=== PATIENT | male | born 1960 | race Caucasian/White ===

== ENCOUNTER 2017-05-31 10:14 | Emergency (ER) | payer OTHER ==
[~2017-05-31] VITALS: Ht 162.6 cm; Wt 57.1 kg
[2017-05-31 10:20] VITALS: Ht 162.6 cm; Wt 57.1 kg
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
[2017-05-31] MEDS ORDERED: DIPHTHERIA/TETANUS/PERTUSSIS 0.5 ML SYR/VIAL IM. ONE (10:45)
[2017-05-31] MEDS ORDERED: AMPICILLIN/SULBACTAM SOD INJ 3,000 MG in SODIUM CHLORIDE 0.9% 100ML 100 ML IV ONE (10:45)
[2017-05-31 10:47] LABS: HEMATOCRIT 43.8 % (42-52); MEAN CORPUSCULAR HEMOGLOBIN 29.1 pg (25-34); MEAN CORPUSCULAR HGB CONC 33.1 g/dl (32-36); MEAN PLATELET VOLUME 11.6 fL (7.4-10.4); PLATELET COUNT 191 K/uL (130-400); RED BLOOD COUNT 4.98 M/uL (4.7-6.1); WHITE BLOOD COUNT 25.02 K/uL (4.8-10.8)
--- NOTE | 2017-05-31 10:49 | DIAGNOSTIC IMAGING REPORT ---
RIGHT FOREARM 2 VIEWS ROUTINE CLINICAL HISTORY: Dog bite. Cellulitis. COMPARISON: None. DISCUSSION: No fractures or dislocations are visualized. No radiopaque foreign bodies are visualized. There is no air within the soft tissues. IMPRESSION: 1. No evidence of fracture 2. No radiopaque foreign bodies identified Electronically signed by: Good Sharma M.D. 05/31/2017 10:47 AM Dictated Date/Time: 05/31/2017 10:47 AM
[2017-05-31 11:06] LABS: BUN/CREATININE RATIO 11.3 (10-20); CREATININE 0.91 mg/dl (0.60-1.40); POTASSIUM 4.2 mmol/L (3.5-5.1)
[2017-05-31 11:09] LABS: ALB/GLOB RATIO 0.9 (0.9-2)
[2017-05-31 11:15] LABS: BASO % 0.1 %; BASO ABS # 0.02 K/uL (0-0.2); COMPLETE YES; EOS % 0.1 %; IG% 0.6 %; LYMPH % 9.8 %; LYMPH ABS # 2.45 K/uL (1.2-3.4); MONO % 7.1 %; NEUT % 82.3 %
[2017-05-31 11:18] VITALS: TEMP 36.8
[2017-05-31] MEDS ORDERED: ONDANSETRON INJ 2 MG/ML 2 ML VIAL IV STA (11:51)
[2017-05-31] MEDS ORDERED: MoRPHine SULFATE 4 MG/ML 1 ML CARP\\VIAL IV STA (11:51)
[2017-05-31] MEDS ORDERED: AMOX875T PO (12:50)
[2017-05-31] MEDS ORDERED: ONDA4TAB10 SL (12:51)
[2017-05-31] MEDS ORDERED: HYDR-5688 PO (12:51)
[2017-05-31 13:28] VITALS: BP 102/80; PULSE 76; O2SAT 99
== END 2017-05-31 13:29 | disposition home or self-care (01) ==
LOC: C.EDB 10:16 → C.EDC 13:29
DX: S51.851A Open bite of right forearm, initial encounter (principal); L08.9 Local infection of the skin and subcutaneous tissue, unspecified; Z23 Encounter for immunization; F32.9 Major depressive disorder, single episode, unspecified; Z87.828 Personal history of other (healed) physical injury and trauma; F17.200 Nicotine dependence, unspecified, uncomplicated; W54.0XXA Bitten by dog, initial encounter

== ENCOUNTER 2020-07-06 16:51 | Inpatient (IN) ==
[2020-07-06] MEDS ORDERED: SODIUM CHLORIDE 0.9% 1000ML 1,000 ML IV ONE ×2 (17:17→18:15)
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
[2020-07-06 17:51] LABS: Basophils # (auto) 0.02 K/uL (0-0.2); Basophils % (auto) 0.1 %; Eosinophils # (auto) 0.03 K/uL (0-0.5); Eosinophils % (auto) 0.2 %; Hematocrit (blood only) 42.5 % (42-52); Hemoglobin 14.8 g/dL (14.0-18.0); Immature Granulocytes # (auto) 0.05 K/uL (0.00-0.02); Immature Granulocytes % (auto) 0.3 %; Lymphocytes # (auto) 1.64 K/uL (1.2-3.4); Mean Corpuscular Hemoglobin 30.8 pg (25-34); Mean Corpuscular Hgb Conc 34.8 g/dL (32-36); Mean Corpuscular Volume 88.5 fL (80-100); Mean Platelet Volume 10.5 fL (7.4-10.4); Monocytes # (auto) 2.25 K/uL (0.11-0.59); Monocytes % (auto) 15.1 %; Neutrophils # (auto) 10.94 K/uL (1.4-6.5); Neutrophils % (auto) 73.3 %; Platelet Count 270 K/uL (130-400); RDW Standard Deviation 41.9 fL (36.4-46.3); White Blood Count 14.93 K/uL (4.8-10.8)
[2020-07-06 18:01] LABS: Appearance Urine Cloudy (Clear); Bacteria Urine Automated 4+ (Negative); Bilirubin Urine Negative (Negative); Blood Urine 1+ (Negative); Color Urine Dark Yellow; Epithelial Cell Urine Auto 0-5 /lpf (0-5); Glucose Urine UA Negative (Negative); Ketones Urine Trace (Negative); Leukocyte Esterase Urine 3+ (Negative); Nitrite Urine Negative (Negative); Protein Urine 1+ (Negative); Specific Gravity Urine 1.016 (1.000-1.030); Urobilinogen Urine Negative (Negative); WBC Urine Automated >30 /hpf (0-5); pH Urine 5.5 (4.5-7.5)
[2020-07-06 18:09] LABS: BUN Creatinine Ratio 11.5 (10-20); Bilirubin Direct 0.2 mg/dl (0-0.2); Calcium 8.5 mg/dl (8.5-10.1); Creatinine Clr Calc Pharmacy 58.8 ml/min; Est GFR (African American) 93.5; Est GFR (Non-African American) 80.6; Potassium 4.3 mmol/L (3.5-5.1)
[2020-07-06 18:11] LABS: Bilirubin,Total 0.8 mg/dl (0.2-1); Total Protein 7.7 gm/dl (6.4-8.2)
--- NOTE | 2020-07-06 18:11 | CT Scan Report ---
ABDOMEN AND PELVIS CT WITHOUT CONTRAST CT DOSE: 247.34 mGy.cm HISTORY: R CVA tenderness dysuria fever TECHNIQUE: Multiaxial CT images of the abdomen and pelvis were performed without contrast. A dose lo wering technique was utilized adhering to the principles of ALARA. COMPARISON STUDY: None. FINDINGS: Mild interstitial thickening at the lung bases. This is likely chronic. Mild emphysema. No pneumoperitoneum. No pneumatosis. Old, healed left anterior rib fractures. No suspicious lytic are bl astic osseous lesions. The unenhanced liver, gallbladder, pancreas, and right adrenal gland are unrem arkable. Mild thickening of the left adrenal gland. Calcified granuloma seen within the spleen. No re nal or ureteral stones. No hydronephrosis. Moderate perinephric fat stranding seen along the lower po le the right kidney. This could be seen in the setting of a pyelonephritis. No retroperitoneal lympha denopathy. Normal caliber abdominal aorta. Trace right hip effusion. Moderate bladder wall thickening . Small diverticulum seen along the right posterior bladder. Mild diffuse right urothelial thickening involving the right ureter. Suboptimal evaluation for bowel pathology due to the lack of intravenous and oral contrast. However, there is no definite bowel wall thickening or obstruction. Colonic diver ticulosis. No evidence for diverticulitis. Normal appendix. IMPRESSION: 1. Moderate right perinephric fat stranding adjacent to the lower pole of the right kidney. This is n onspecific but favors a pyelonephritis given the associated urothelial thickening of the right ureter and moderate bladder wall thickening. Recommend correlation with urinalysis. 2. No renal or ureteral stones. No hydronephrosis. 3. No definite bowel wall thickening or obstruction. 4. Normal appendix. 5. Colonic diverticulosis. ACT 112: Negative or not required by law. Electronically signed by: Helder Garcia M.D. 07/06/2020 6:10 PM
[2020-07-06] MEDS ORDERED: cefTRIAXone SODIUM 1,000 MG/50 ML BAG IV STA (18:15)
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
[2020-07-06] MEDS ORDERED: ACETAMINOPHEN 325 MG TAB PO PRN (20:55)
[2020-07-06] MEDS: SODIUM CHLORIDE 0.9% 1000ML 1,000 ML IV SCH (21:25)
[2020-07-07 08:59] LABS: Basophils # (auto) 0.01 K/uL (0-0.2); Basophils % (auto) 0.1 %; Eosinophils # (auto) 0.02 K/uL (0-0.5); Eosinophils % (auto) 0.1 %; Hematocrit (blood only) 41.4 % (42-52); Hemoglobin 13.9 g/dL (14.0-18.0); Immature Granulocytes # (auto) 0.04 K/uL (0.00-0.02); Immature Granulocytes % (auto) 0.3 %; Lymphocytes # (auto) 1.61 K/uL (1.2-3.4); Lymphocytes % (auto) 11.3 %; Mean Corpuscular Hemoglobin 29.8 pg (25-34); Mean Corpuscular Hgb Conc 33.6 g/dL (32-36); Mean Corpuscular Volume 88.8 fL (80-100); Mean Platelet Volume 10.2 fL (7.4-10.4); Monocytes # (auto) 2.17 K/uL (0.11-0.59); Monocytes % (auto) 15.2 %; Neutrophils # (auto) 10.43 K/uL (1.4-6.5); Platelet Count 280 K/uL (130-400); RDW Coefficient of Variation 13.1 % (11.5-14.5); RDW Standard Deviation 42.4 fL (36.4-46.3); Red Blood Count 4.66 M/uL (4.7-6.1); White Blood Count 14.28 K/uL (4.8-10.8)
[2020-07-07 09:27] LABS: BUN Creatinine Ratio 10.7 (10-20); Calcium 8.4 mg/dl (8.5-10.1); Creatinine Clr Calc Pharmacy 72.1 ml/min; Est GFR (African American) 109.7; Est GFR (Non-African American) 94.7; Potassium 4.5 mmol/L (3.5-5.1)
[2020-07-07] MEDS: SODIUM CHLORIDE 0.9% 1000ML 1,000 ML IV SCH (10:13)
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
--- NOTE | 2020-07-07 11:31 | Hospitalist Progress Note ---
Date of Service July 07, 2020 Assessment & Plan Admission and Anticipated Discharge Date Admission Date: July 06, 2020 Results & Data Results & Data ([facility]) Vital Signs (Past 12 Hours) Vital Signs Temp Pulse Resp BP Pulse Ox 07/07/20 07:15 37.3 C 77 18 110/70 95 PG Care Time/CCT Total # of Minutes Spent Total Time Spent with Patient: Total time spent is greater than 50% in coordination of care (as documented) at patient's floor/unit and/or counseling patient: Coding
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
[2020-07-07] MEDS ORDERED: HYDROCORTISONE 1% CRM 30 GM TUBE EXT PRN (15:34)
[2020-07-07] MEDS ORDERED: cefTRIAXone SODIUM 1,000 MG in DEXTROSE 5% 50 ML IV SCH (18:00)
--- NOTE | 2020-07-08 03:19 | Billing Data ---
Date of Service July 08, 2020 Coding Level of Care Code 42967 OBS Care - Level 3
== END 2020-07-07 16:32 | disposition home or self-care (01) | DRG 690 ==
LOC: ED 16:51 → SUATTDRO 19:43 → 3W 19:43